=== PATIENT | male | born 1990 | race Caucasian/White ===

== ENCOUNTER 2016-11-27 12:38 | Emergency (ER) | payer OTHER ==
[2016-11-27 12:55] VITALS: BP 133/71; PULSE 97; TEMP 98; BMI 29.0
[2016-11-27] MEDS ORDERED: ACETAMINOPHEN 500 MG TABLET (FP) PO ONE (13:42)
[2016-11-27] MEDS ORDERED: ACETAMINOPHEN 500 MG TABLET (FP) ONE (13:45)
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
== END 2016-11-27 15:52 | disposition home or self-care (01) ==
LOC: JERFT 12:38 → JER 12:38 → JERFT 15:52
DX: S01.412A Laceration without foreign body of left cheek and temporomandibular area, initial encounter (principal); S00.83XA Contusion of other part of head, initial encounter; S00.12XA Contusion of left eyelid and periocular area, initial encounter; Y04.0XXA Assault by unarmed brawl or fight, initial encounter; Y93.89 Activity, other specified; Y92.89 Other specified places as the place of occurrence of the external cause
CPT/HCPCS: 70450-TC; 70486-TC; 99281-25

== ENCOUNTER 2016-12-07 00:31 | Emergency (ER) | payer OTHER ==
[2016-12-07 01:09] VITALS: BP 110/70; PULSE 72; TEMP 98; BMI 25.0
--- NOTE | 2016-12-07 01:23 | PDOC ---
[id number]) Stated Complaint: SUTURE REMOVAL Time Seen by Provider: 12/07/16 00:59 History Source: Yes: Patient Exam Limitations: Yes: No Limitations Date of Last ED visit: 11/28/16 - Previous ED Treatment Type of procedure performed on last visit: Yes: Laceration Repair Tetanus Immunization: Yes: Up to Date Antibiotics Prescribed: No - Onset of Previous Treatment Comment:: 12/07/16 01:21 5 sutures removed without complications. Past History - Past Medical History Allergies/Adverse Reactions: Allergies No Known Allergies Allergy (Verified 11/27/16 12:43) Home Medications: Ambulatory Orders NK [No Known Home Medication] 11/27/16 - Immunization History Immunizations Up to Date: Yes - Social History Smoking Status: Never smoked Suture Removal/Wound Check PE - Physical Exam Laceration/Wound Check Symptoms: reports: None Location of Laceration/Wound: left: Face (5 tsitches clean dry and intact to left cheek) *Review of Systems - Review of Systems Able to Perform ROS?: Yes Integumentary: Yes: Other (wound stitches removed) *DC/Admit/Observation/Transfer Diagnosis at time of Disposition: Visit for suture removal - Discharge Dispostion Disposition: HOME - Referrals Referrals: Andre Nuñez MD [Primary Care Provider] - - Patient Instructions Printed Discharge Instructions: DI for Suture Removal Additional Instructions: keep site clean anad dry. avoid sunlight
== END 2016-12-07 01:31 | disposition home or self-care (01) ==
LOC: JER 00:31
DX: Z48.02 Encounter for removal of sutures (principal)
CPT/HCPCS: 99281-25

== ENCOUNTER 2021-10-31 16:03 | Emergency (ER) | payer SELFPAY ==
[2021-10-31 16:13] VITALS: TEMP 98.4; BMI 28.5
[2021-10-31] MEDS ORDERED: TETRACAINE 0.5% OPHTH SOLN 2 ML BOTTLE OD ONE (17:31)
[2021-10-31] MEDS ORDERED: FLUORESCEIN NA 1 EA STRIP OD ONE (17:37)
[2021-10-31] MEDS ORDERED: IBUPROFEN 600 MG TABLET (FP) PO ONE ×2 (17:39→17:42)
[2021-10-31] MEDS ORDERED: TETRACAINE 0.5% OPHTH SOLN 2 ML BOTTLE ONE (17:42)
[2021-10-31] MEDS ORDERED: FLUORESCEIN NA 1 EA STRIP ONE (17:42)
[2021-10-31 18:00] LABS: BASO % 0.3 % (0-2.0); EOS % 0.9 % (0-4.5); HEMATOCRIT 45.3 % (35.4-49); HEMOGLOBIN 15.5 GM/dL (11.7-16.9); MCH 30.6 pg (25.7-33.7); MCHC 34.2 g/dl (32.0-35.9); MEAN CELL VOLUME 89.3 fl (80-96); MEAN PLT VOLUME 8.8 fl (7.5-11.1); MONO % 8.3 % (3.8-10.2); NEUT % 65.5 % (42.8-82.8); PLATELET COUNT 182 10^3/uL (134-434); RBC 5.07 M/mm3 (4.00-5.60); RDW 13.4 % (11.9-15.9); WHITE BLOOD COUNT 5.9 K/mm3 (4.0-10.0)
[2021-10-31 18:25] LABS: CHLORIDE 104 mmol/L (98-107); SODIUM 134 mmol/L (136-145)
[2021-10-31 18:28] LABS: CALCIUM 9.2 mg/dL (8.5-10.1)
[2021-10-31 18:29] LABS: ALBUMIN 4.3 g/dl (3.4-5.0); BLOOD UREA NITROGEN 16.7 mg/dL (7-18); CO2 25 mmol/L (21-32); GLUCOSE,RANDOM 82 mg/dL (74-106); MAGNESIUM 2.6 mg/dL (1.8-2.4)
[2021-10-31 18:32] LABS: BILIRUBIN,TOTAL 0.8 mg/dL (0.2-1); CREATININE 1.1 mg/dL (0.55-1.3); SGOT/AST 70 U/L (15-37); SGPT/ALT 43 U/L (13-61); TOT PROT 8.7 g/dl (6.4-8.2)
[2021-10-31 18:34] LABS: ALK PHOS 62 U/L (45-117); URINE APPEARANCE CLEAR; URINE BILIRUBIN NEGATIVE (NEGATIVE); URINE COLOR YELLOW; URINE GLUCOSE (UA) NEGATIVE (NEGATIVE); URINE KETONE NEGATIVE (NEGATIVE); URINE LEUK ESTERASE NEGATIVE (NEGATIVE); URINE NITRITE NEGATIVE (NEGATIVE); URINE PROTEIN NEGATIVE (NEGATIVE); URINE UROBILINOGEN 0.2 mg/dL (0.2-1.0)
[2021-10-31 18:38] LABS: ANION GAP 5 MMOL/L (8-16)
[2021-10-31 20:07] LABS: COCAINE, UR NEGATIVE (NEGATIVE); METHADONE, UR NEGATIVE (NEGATIVE); OPIATES, URI NEGATIVE (NEGATIVE); PHENCYCLIDINE,URINE NEGATIVE (NEGATIVE); URINE AMPHETAMINES NEGATIVE (NEGATIVE); URINE BARBITURATES NEGATIVE (NEGATIVE); URINE BENZODIAZEPINES NEGATIVE (NEGATIVE)
[2021-10-31 20:09] LABS: CALCIUM 9.6 mg/dL (8.5-10.1)
[2021-10-31 20:10] LABS: BLOOD UREA NITROGEN 17.3 mg/dL (7-18)
[2021-10-31 20:13] LABS: CREATININE 1.1 mg/dL (0.55-1.3)
[2021-10-31 21:38] VITALS: BP 121/64; PULSE 64
== END 2021-10-31 20:40 | disposition home or self-care (01) ==
LOC: JER 16:03
DX: R55 Syncope and collapse (principal); S05.01XA Injury of conjunctiva and corneal abrasion without foreign body, right eye, initial encounter; W19.XXXA Unspecified fall, initial encounter
CPT/HCPCS: 36415; 70450-TC; 71046-TC-FY; 80048; 80053; 80307; 81003; 83735; 84484; 85025; 87086; 93005; 93010; 99285-25